=== PATIENT | male | born 1990 | race African-American/Black ===

== ENCOUNTER 2021-12-11 23:29 | Emergency (ER) | payer SELFPAY ==
[2021-12-12] MEDS ORDERED: Ibuprofen 200 MG TAB ONE (00:14)
== END 2021-12-12 00:17 | disposition home or self-care (01) ==
LOC: CSHERS 23:29
DX: U07.1 COVID-19 (principal); F17.210 Nicotine dependence, cigarettes, uncomplicated
CPT/HCPCS: 99284; U0003; U0005